=== PATIENT | female | born 1955 | race Caucasian/White ===

== ENCOUNTER 2023-07-05 14:14 | Outpatient (CLI) | payer BC ==
[2023-07-05 15:17] LABS: Hematocrit 37.7 % (34.9-44.5)
[2023-07-05 15:35] LABS: Anion Gap 18 mmol/L (10-20); BUN (Urea Nitrogen) 11 mg/dL (9.8-20.1); Calc. Creatinine Clearance 0 mL/min (70-130); Calcium 9.6 mg/dL (7.8-10.44); Carbon Dioxide 26 mmol/L (23-31); Chloride 99 mmol/L (98-107); Estimated GFR 67; Glucose 137 mg/dL (80-115); Potassium 3.8 mmol/L (3.5-5.1); Sodium 139 mmol/L (136-145)
== END 2023-07-05 14:15 | disposition home or self-care (01) ==
LOC: LABBT 14:14
PROVIDERS: ATTEND Specialist
DX: Z01.818 Encounter for other preprocedural examination (principal); J32.0 Chronic maxillary sinusitis; J34.3 Hypertrophy of nasal turbinates
CPT/HCPCS: 80048; 85014; 85018; 93005; 93010

== ENCOUNTER 2023-07-08 08:22 | Day surgery (SDC) | payer BC ==
[2023-07-05 14:51] VITALS: BMI 41.5
[2023-07-08] MEDS ORDERED: Oxymetazoline HCl 0.05% (30 ML BOT) ONE (10:21)
[2023-07-08] MEDS ORDERED: fentaNYL PF 100 MCG/2 ML SYRINGE ONE (10:25)
[2023-07-08] MEDS ORDERED: Midazolam HCl 2 mg/2 ml Vial ONE (10:25)
[2023-07-08] MEDS ORDERED: SUGAMMADEX SODIUM 200 MG/2 ML VIAL ONE (10:26)
[2023-07-08] MEDS ORDERED: PROPOFOL 200 MG/20 ML VIAL ONE (11:14)
[2023-07-08] MEDS ORDERED: Dexamethasone 20 MG/5 ML VIAL ONE (11:14)
[2023-07-08] MEDS ORDERED: Lidocaine 1% PF 5 ML VIAL ONE (11:14)
[2023-07-08] MEDS ORDERED: Rocuronium Bromide 10 MG/ML (10ML VIAL) ONE (11:14)
[2023-07-08] MEDS ORDERED: Ondansetron PF 4 MG/2 ML Vial ONE (11:14)
[2023-07-08] MEDS ORDERED: fentaNYL 50 mcg/mL 1 mL Vial ONE (12:43)
[2023-07-08] MEDS ORDERED: HYDROcodone/Acetaminophen 5/325 mg Tablet ONE (13:48)
[2023-07-08] MEDS ORDERED: hydrALAZINE 20 MG/ML VIAL ONE (14:06)
== END 2023-07-08 15:30 | disposition home or self-care (01) ==
LOC: SDC 08:22
PROVIDERS: ATTEND Specialist
PROC: 09TR8ZZ Resection of Left Maxillary Sinus, Via Natural or Artificial Opening Endoscopic (ICD-10-PCS; principal; 2023-07-08)
PROC: 09TX8ZZ Resection of Left Sphenoid Sinus, Via Natural or Artificial Opening Endoscopic (ICD-10-PCS; principal; 2023-07-08)
PROC: 09TL8ZZ Resection of Nasal Turbinate, Via Natural or Artificial Opening Endoscopic (ICD-10-PCS; principal; 2023-07-08)
PROC: 09TV8ZZ Resection of Left Ethmoid Sinus, Via Natural or Artificial Opening Endoscopic (ICD-10-PCS; principal; 2023-07-08)
PROC: 09TT8ZZ Resection of Left Frontal Sinus, Via Natural or Artificial Opening Endoscopic (ICD-10-PCS; principal; 2023-07-08)
DX: J34.3 Hypertrophy of nasal turbinates (principal); J32.0 Chronic maxillary sinusitis; E11.9 Type 2 diabetes mellitus without complications; E78.00 Pure hypercholesterolemia, unspecified; I10 Essential (primary) hypertension; D05.00 Lobular carcinoma in situ of unspecified breast; Z79.899 Other long term (current) drug therapy
CPT/HCPCS: 36416; 87070; 87077; 87102; 87186; 87205; 87206; J0360; J1100; J2250; J2405; J2704; J3010